=== PATIENT | female | born 1995 ===

== ENCOUNTER 2020-06-28 11:40 | Outpatient (REF) | payer OTHER, SELFPAY ==
[2020-06-29 11:58] LABS: BV Int Neg Control Negative (Negative); BV Int Pos Control Positive (Positive)
== END 2020-06-28 11:41 | disposition home or self-care (01) ==
LOC: HO.LNP 11:40
PROVIDERS: Visit Provider Nurse Practitioner Family
DX: N89.8 Other specified noninflammatory disorders of vagina (principal)
CPT/HCPCS: 87480; 87510; 87660

== ENCOUNTER 2020-07-03 11:03 | Outpatient (REF) | payer OTHER, SELFPAY ==
--- NOTE | 2020-07-03 | US_ITS ---
EXAMINATION: ULTRASOUND PELVIC, COMPLETE CLINICAL INFORMATION: Abnormal prior ultrasound COMPARISON: Pelvic ultrasound 04/19/2020 TECHNIQUE: Transabdominal and transvaginal imaging was performed. Transvaginal imaging was performed for further evaluation of the endometrium and adnexa. FINDINGS: The uterus is of normal size and echogenicity measuring 5.6 x 2.5 x 3.5 cm. Previously seen complex cystic lesion in the anterior aspect of the lower uterine segment adjacent to the endometrium shows involution with a residual heterogeneous area that measures 0.6 x 0.3 x 0.5 cm. No internal cystic change. A regular homogeneous endometrium is identified measuring 0.4 cm. Both ovaries are of normal size and echogenicity. The right ovary measures 4.2 x 1.7 x 1.9 cm for a volume of 6.8 mL. The left ovary measures 2.7 x 1.5 x 2.7 cm for a volume of 5.7 mL. There is no pelvic free fluid. IMPRESSION: Interval involution of previously seen complex cystic area in the anterior lower uterine segment, now with residual heterogeneous area that measures 0.6 x 0.3 x 0.5 cm. Ovaries are sonographically normal.
== END 2020-07-03 11:04 | disposition home or self-care (01) ==
LOC: HO.US 11:03
PROVIDERS: PCP Internal Medicine; Visit Provider Obstetrics & Gynecology
DX: R93.89 Abnormal findings on diagnostic imaging of other specified body structures (principal)
CPT/HCPCS: 76830; 76856

== ENCOUNTER 2020-11-28 12:05 | Outpatient (REF) | payer OTHER, SELFPAY ==
[2020-11-29 05:05] LABS: ~Hepatitis B Surface Antibody REACTIVE (Nonreactive)
[2020-12-01 11:16] LABS: TS Negative Control Passed; TS Panel A 0; TS Panel B 1; TS Positive Control Passed; TSpotTB Negative (SeeBelow)
== END 2020-11-28 12:06 | disposition home or self-care (01) ==
LOC: HO.HMGCLDS 12:05
PROVIDERS: PCP Internal Medicine; Visit Provider Internal Medicine
DX: Z01.84 Encounter for antibody response examination (principal); Z11.1 Encounter for screening for respiratory tuberculosis
CPT/HCPCS: 36415; 86481; 86706; 86735; 86762; 86765; 86787

== ENCOUNTER 2021-05-15 10:18 | Outpatient (REF) | payer OTHER, SELFPAY ==
[2021-05-16 05:52] LABS: CT PCR NOT DETECTED (Not Detect.); NG PCR NOT DETECTED (Not Detect.)
[2021-05-16 08:57] LABS: BV Int Neg Control Negative (Negative); BV Int Pos Control Positive (Positive)
== END 2021-05-15 10:19 | disposition home or self-care (01) ==
LOC: HO.LAB 10:18
PROVIDERS: Visit Provider Advanced Practice Midwife
DX: Z01.419 Encounter for gynecological examination (general) (routine) without abnormal findings (principal); N92.6 Irregular menstruation, unspecified; Z87.42 Personal history of other diseases of the female genital tract; Z79.899 Other long term (current) drug therapy
CPT/HCPCS: 87480; 87491; 87510; 87591; 87660; 88142

== ENCOUNTER 2022-05-19 11:02 | Outpatient (REF) | payer OTHER, SELFPAY ==
[2022-05-19 13:06] LABS: Syphilis Screen Nonreactive (Nonreactive)
[2022-05-19 17:01] LABS: CT PCR NOT DETECTED (Not Detect.); NG PCR NOT DETECTED (Not Detect.)
[2022-05-20 04:40] LABS: HBsAGNum1 0.24 S/CO (0.00-0.99); HIV AB/AG Nonreactive (Nonreactive); HIV Num 1 0.09 S/CO (0.00-0.99); Hepatitis B Surface Antigen Negative (Negative); ~HepC Num1 0.08 S/CO (0.00-0.79); ~Hepatitis C Antibody Nonreactive (Nonreactive)
[2022-05-20 12:54] LABS: BV Int Neg Control Negative (Negative); BV Int Pos Control Positive (Positive)
[2022-06-08 00:37] LABS: HPV mRNA E6/E7 rflx Not Detected (Not Detected)
== END 2022-05-19 11:03 | disposition home or self-care (01) ==
LOC: HO.LAB 11:02
PROVIDERS: Visit Provider Advanced Practice Midwife
DX: Z01.419 Encounter for gynecological examination (general) (routine) without abnormal findings (principal); Z11.3 Encounter for screening for infections with a predominantly sexual mode of transmission; Z11.4 Encounter for screening for human immunodeficiency virus [HIV]; Z87.42 Personal history of other diseases of the female genital tract
CPT/HCPCS: 36415; 86780; 86803; 87340; 87389; 87480; 87491; 87510; 87591; 87624; 87660; 88142

== ENCOUNTER 2023-05-22 11:06 | Outpatient (REF) | payer OTHER, SELFPAY ==
[2023-05-22 14:03] LABS: CT PCR NOT DETECTED (Not Detect.); NG PCR NOT DETECTED (Not Detect.)
[2023-05-23 14:14] LABS: BV Int Neg Control Negative (Negative); BV Int Pos Control Positive (Positive)
== END 2023-05-22 11:07 | disposition home or self-care (01) ==
LOC: HO.LNP 11:06
PROVIDERS: Visit Provider Advanced Practice Midwife
DX: Z01.419 Encounter for gynecological examination (general) (routine) without abnormal findings (principal); Z20.2 Contact with and (suspected) exposure to infections with a predominantly sexual mode of transmission
CPT/HCPCS: 0353U; 87480; 87510; 87660

== ENCOUNTER 2023-05-22 11:06 | Outpatient (AMB) | payer OTHER, SELFPAY ==
--- NOTE | 2023-05-22 11:17 | A.OFFVIS_ITS ---
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 It Administrative Assistant Required: No Information Interpreted: non-clinical & clinical Supervisor Crack Off: Supervisor Crack Off Present (Daniel) Allergies No Known Allergies Allergy (Verified 05/22/23 11:21) Medication List - Last Reconciled 05/22/23 by Camille Landon CNM bupropion HCl (Wellbutrin XL) 300 mg PO QAM cholecalciferol (vitamin D3) 1,250 mcg PO QWEEK dextroamphetamine-amphetamine 10 mg ER 1 cap PO QAM escitalopram oxalate (Lexapro) 20 mg PO DAILY fluticasone propionate 50 mcg/actuation 1 spray intranasal DAILY norelgestromin-ethin.estradiol 150-35 mcg/24 hr (Xulane) 1 patch transdermal Q7D Is last menstrual period known: Yes Last menstrual period: 05/09/23 Post menopausal: No HPI 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 She is using the patch she sometimes finds that it is itchy and she finds herself scratching it but she does not have a rash. She is otherwise happy with the patch and thinks she will stick with it . 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 She injured her back this year and is looking at an outpatient clinic job that will be less strenuous on her back because she does not want to return to full duty and injure her back again she was lifting with another work colleague and she lifted in the other person did not. She says it has been very busy on their unit in all of their patients are total care. She is off for vacation this week having worked last night and she is going to be driving to [place] tomorrow to visit her family in [place]. [facility] Medical History ADD (attention deficit disorder) Family History Mother CVD (cardiovascular disease) High cholesterol Father HTN (hypertension) Social History Household Members: Other Household Members Other:: roomate Housing: Apartment Alcohol intake: current Patient Tobacco Use Status: Never used Tobacco Sexual orientation: Straight/Heterosexual Gender identity: Female Female Reproductive History Menstrual Age of Menarche: 12 Duration of menses: 6-7 days Date of last menstrual period: 05/09/23 control method: patch Total pregnancies: 0 Date of last pap smear: 05/21/22 (negative) History of abnormal pap smear: Yes (LARRY 1) Physical Exam Vital Signs: BMI result Body Mass Index 19.2 Const General: healthy appearing, comfortable, no acute distress, well developed and alert Nutritional Appearance: average body habitus Orientation/consciousness: patient oriented x3 Limitations: no limitations HEENT Head: Yes normocephalic Neck Neck: Yes normal visual inspection Chest Chest palpation & inspection: normal inspection of the chest Breast/axilla inspection: normal inspection of the breasts and normal inspection of the axillae Breast/axilla palpation: normal palpation of the breasts and normal palpation of the axillae Resp Effort & Inspection: normal respiratory effort GI Inspection: Yes normal to inspection, No Abdominal wall edema and No distended Palpation (GI): Soft to palpation and nontender Other: nullip, pink, clear mucous, uterus small, sl retroverted. General: Yes bladder normal to palpation External Female Exam: normal external appearance and normal appearance of the urethra Speculum Exam - Vagina: normal appearance of the vagina, normal palpation and normal vaginal discharge Speculum Exam - Cervix: normal appearance of the cervix, normal palpation and nontender Bimanual exam- vagina & uterus: normal bimanual exam, normal palpation, uterine size normal, bladder normal to palpation, consistency normal, normal palpation, uterine mobility normal, uterine shape normal, No Cervical tenderness present, non-tender and no cervical motion tenderness Bimanual Exam- Adnexa, other: normal adnexae, no masses, normal and No adnexal tenderness Neuro General: patient oriented x3 Results Reviewed Results Reviewed: Name:April Babb Age/Sex: 25/F Attending: Camille Landon CNM : 1995 Submitted by: Camille Landon CNM Copies to: MR #: [id number] ? Status: DEP REF Collected: 05/15/21 Location: [facility] Received: 05/16/21 Interpretation Satisfactory for evaluation. Negative for intraepithelial lesion or malignancy. Clinical Information LMP: 05/15/2021 Previous PAP test: Unknown date, abnormal Other history: LARRY 1 Material Received ThinPrep cervical Electronically Signed By: Britni Harris ? 05/24/21 1431 Name:?April Truong Age/Sex: 26/F Attending: Camille Landon CNM : 1995 Submitted by: Camille Landon CNM Copies to: MR #: [id number] ? Status: DEP REF Collected: 05/19/22 Location: [facility] Received: 05/20/22 Interpretation Satisfactory for evaluation. No endocervical cells seen. Negative for intraepithelial lesion or malignancy. Clinical Information LMP: 03/2022 Previous PAP test: 05/16/21, WNL Material Received ThinPrep-Cervical Assessment & Plan Assessment & Plan (1) Counseling for initiation of control method: Comment: switching from ocps to patch; 05/22/2023 will continue on patch Code(s): Z30.09 - Encounter for other general counseling and advice on contraception (2) Screen for sexually transmitted diseases: Code(s): Z11.3 - Encounter for screening for infections with a predominantly sexual mode of transmission (3) Hx of abnormal cervical Pap smear: Comment: hx larry 1, pap 05/15/21= neg. 05/19/2022 Pap is negative, hpv not done, pending now. Code(s): Z87.42 - Personal history of other diseases of the female genital tract Plan Pap deferred as the previous 2 Paps were normal though it is noted that HPV code testing was not done as requested. STI testing was offered and accepted for the vaginal tests but declined for blood work is not necessary. Reviewed the patch versus other options she thinks she will stick with the patch. The other similar option that would be within her control to stop when she wants to conceive would be the NuvaRing and I did describe it to her but she is not interested at this time. I also discussed with her that when she does feel ready and wants to conceive all she needs to do is stop the patch at the end of the 3 week cycle of use and proceed on from there and be open to conception. It sometimes might be good to wait for of entire cycle and have a heavy normal menses but it is not absolutely necessary. Also discussed back care and remembering everything she was taught in physical therapy to help prevent re-injury of her back. 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 Orders: Orders Bacterial Vaginosis Panel Today Z01.419 - Encounter for gynecological examination (general) (routine) without abnormal findings CT NG by PCR Today Z01.419 - Encounter for gynecological examination (general) (routine) without abnormal findings Medications: Refilled norelgestromin-ethin.estradiol 150-35 mcg/24 hr (Xulane) apply once weekly for 3 weeks of a 4-week cycle 1 patch transdermal Q7D 9 ea 4RF Coding Level of Care Code Est Pt Prev Care 18-39y(99664) Diagnoses Counseling for initiation of control method Z30.09 Screen for sexually transmitted diseases Z11.3 Hx of abnormal cervical Pap smear Z87.42
[2023-05-22 11:18] VITALS: BP 108/64; BMI 19.2
== END 2023-05-22 11:56 | disposition home or self-care (01) ==
PROVIDERS: Visit Provider Advanced Practice Midwife
DX: Z01.419 Encounter for gynecological examination (general) (routine) without abnormal findings (principal); Z30.09 Encounter for other general counseling and advice on contraception; Z11.3 Encounter for screening for infections with a predominantly sexual mode of transmission; Z87.42 Personal history of other diseases of the female genital tract
CPT/HCPCS: 99395

== ENCOUNTER 2023-11-16 09:31 | Outpatient (AMB) | payer OTHER, SELFPAY ==
[2023-11-16 09:39] VITALS: BP 110/64; BMI 19.2
--- NOTE | 2023-11-16 09:39 | MHC.OFFVIS ---
Intake Vital Signs 11/16/23 09:39 Height 5 ft 2 in Weight 105 lb BMI 19.2 BP 110/64 Intake Visit Reasons: vag irritation/discharge Intake Note: vaginal itch and yellow brownish discharge also having odor Site Acquisition Manager Required: No Information Interpreted: non-clinical & clinical Assistant To The Vice President: Assistant To The Vice President Present (Daniel) Allergies No Known Allergies Allergy (Verified 11/16/23 09:41) Medication List - Last Reconciled 11/16/23 by Camille Landon CNM bupropion HCl (Wellbutrin XL) 300 mg PO QAM cholecalciferol (vitamin D3) 1,250 mcg PO QWEEK dextroamphetamine-amphetamine 10 mg ER 1 cap PO QAM escitalopram oxalate (Lexapro) 20 mg PO DAILY fluticasone propionate 50 mcg/actuation 1 spray intranasal DAILY meloxicam 15 mg PO DAILY norelgestromin-ethin.estradiol 150-35 mcg/24 hr (Xulane) 1 patch transdermal Q7D pregabalin 75 mg PO BID Is last menstrual period known: Yes Last menstrual period: 10/23/23 Post menopausal: No HPI vag irritation/discharge HPI Details Uses the patch for control and happy with that she is always on time with it. She has been noticing a little bit of a brownish discharge sometimes sometimes yellow sometimes even a green tint and it had a little bit of an odor so she wants to get checked she has having no itching. Not having any pain or anything like that. [facility] Medical History (Updated 11/16/23 @ 10:18 by Camille Landon CNM) Back pain Depression ADD (attention deficit disorder) Family History Mother CVD (cardiovascular disease) High cholesterol Father HTN (hypertension) Social History Household Members: Other Household Members Other:: roomate Housing: Apartment Alcohol intake: current Patient Tobacco Use Status: Never used Tobacco Sexual orientation: Straight/Heterosexual Gender identity: Female Female Reproductive History Menstrual Age of Menarche: 12 Duration of menses: 6-7 days Date of last menstrual period: 10/23/23 control method: patch Total pregnancies: 0 Date of last pap smear: 05/20/22 (negative) Physical Exam Vital Signs: Last Vital Signs BP 110/64 11/16/23 09:39 BMI result Body Mass Index 19.2 Other: Speculum exam within normal limits discharge today is whitish with some bubbly missed 2 it but appears within normal limits some brown discharge within os consistent with old blood. External Female Exam: normal external appearance and normal appearance of the urethra Speculum Exam - Vagina: normal appearance of the vagina and normal vaginal discharge Speculum Exam - Cervix: normal appearance of the cervix and Cervical os closed Assessment & Plan Assessment & Plan (1) Screen for sexually transmitted diseases: Code(s): Z11.3 - Encounter for screening for infections with a predominantly sexual mode of transmission (2) Problematic vaginal discharge: Comment: Await testing results Code(s): N89.8 - Other specified noninflammatory disorders of vagina Plan Reviewed the testing that we are doing today testing for STIs and bacterial vaginosis and yeast. Will await the test results exam rather benign today. Reviewed whether not she been late with the patch or anything that could explain intermenstrual breakthrough bleeding but she is always on time with it in it stuck well on. Discussed the possibility that maybe this is just a little bit of breakthrough bleeding that mixed with her discharge that caused the color change in odor but we will see and await results she is on the portal so she can see the results quickly as well. If there is anything we will offer treatment. She says she has enough patches & is not running out. Coding Level of Care Code Est Pt Level 3 (37213) Diagnoses Screen for sexually transmitted diseases Z11.3 Problematic vaginal discharge N89.8
== END 2023-11-16 10:46 | disposition home or self-care (01) ==
LOC: HO.HWSM 09:32
PROVIDERS: PCP Student in an Organized Health Care Education/Training Program; Visit Provider Advanced Practice Midwife
DX: Z11.3 Encounter for screening for infections with a predominantly sexual mode of transmission (principal); N89.8 Other specified noninflammatory disorders of vagina
CPT/HCPCS: 99213

== ENCOUNTER 2023-11-16 09:31 | Outpatient (REF) | payer OTHER, SELFPAY ==
[2023-11-17 11:39] LABS: CT PCR NOT DETECTED (Not Detect.); NG PCR NOT DETECTED (Not Detect.)
[2023-11-17 12:47] LABS: BV Int Neg Control Negative (Negative); BV Int Pos Control Positive (Positive)
== END 2023-11-16 09:32 | disposition home or self-care (01) ==
LOC: HO.LNP 09:31
PROVIDERS: PCP Student in an Organized Health Care Education/Training Program; Visit Provider Advanced Practice Midwife
DX: Z20.2 Contact with and (suspected) exposure to infections with a predominantly sexual mode of transmission (principal); N89.8 Other specified noninflammatory disorders of vagina
CPT/HCPCS: 0353U; 87480; 87510; 87660

== ENCOUNTER 2024-06-28 09:23 | Outpatient (AMB) | payer OTHER, SELFPAY ==
[2024-06-28 09:28] VITALS: BP 110/60; BMI 19.2
--- NOTE | 2024-06-28 09:28 | A.OFFVIS_ITS ---
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 Information Interpreted: clinical only Rodding Machine Tender: Rodding Machine Tender Present Allergies No Known Allergies Allergy (Verified 06/28/24 09:28) Medication List - Last Reconciled 06/28/24 by Camille Landon CNM bupropion HCl XL (Wellbutrin XL) 300 mg PO QAM cholecalciferol (vitamin D3) 1,250 mcg PO QWEEK dextroamphetamine-amphetamine 10 mg ER 1 cap PO QAM escitalopram oxalate (Lexapro) 20 mg PO DAILY fluticasone propionate 50 mcg/actuation 1 spray intranasal DAILY meloxicam 15 mg PO DAILY norelgestromin-ethin.estradiol 150-35 mcg/24 hr (Xulane) 1 patch transdermal Q7D pregabalin 75 mg PO BID Is last menstrual period known: Yes Last menstrual period: 06/23/24 HPI HPI 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 She says things are good and she does have a therapist and a psychiatrist prescribes her antidepressant so she thinks she is on the right dose discussed that there are effects on libido from both OCPs and their analogs last patches and antidepressants and also depression itself. Explored with her options for dealing with this from a contraceptive point of view but she feels she is on the best method for her because of her history of PCOS in getting recurrent cysts so if she were to switch to a nonhormonal method that problem would revisit. Explored things that may make her feel better including exercise things that gave her luis alberto. She will keep working on this but thinks she is on the best method of control I am sending a prescription to refill for her but insurance may not pay for the extra box. We will do her Pap smear next year with HPV code testing as she is not due for it now and the last 2 were negative testing done for infections along with the exam. For now she will continue patch and see next year. [facility] Medical History Back pain Depression ADD (attention deficit disorder) Family History Mother CVD (cardiovascular disease) High cholesterol Father HTN (hypertension) Social History Household Members: Other Household Members Other:: roomate Housing: Apartment Alcohol intake: current Patient Tobacco Use Status: Never used Tobacco Sexual orientation: Straight/Heterosexual Gender identity: Female Female Reproductive History Menstrual Age of Menarche: 12 Duration of menses: 6-7 days Date of last menstrual period: 06/23/24 control method: patch Total pregnancies: 0 Date of last pap smear: 05/20/22 (negative,2020 WNL) History of abnormal pap smear: Yes (abn.pap,2016,per pt,) Physical Exam Vital Signs: Last Vital Signs BP 110/60 06/28/24 09:28 BMI result Body Mass Index 19.2 Const General: healthy appearing, comfortable, no acute distress, well developed and alert Nutritional Appearance: average body habitus Orientation/consciousness: patient oriented x3 Limitations: no limitations HEENT Head: Yes normocephalic Neck Neck: Yes normal visual inspection Chest Chest palpation & inspection: normal inspection of the chest Breast/axilla inspection: normal inspection of the breasts and normal inspection of the axillae Breast/axilla palpation: normal palpation of the breasts and normal palpation of the axillae Resp Effort & Inspection: normal respiratory effort GI Inspection: Yes normal to inspection, No Abdominal wall edema and No distended Palpation (GI): Soft to palpation and nontender Other: External exam within limits vagina moist cervix nulliparous pink moist end of menses brown mucousy discharge cervix long thick closed mobile nontender uterus midposition mobile nontender adnexa nontender good tone with Kegel. General: Yes bladder normal to palpation External Female Exam: normal external appearance and normal appearance of the ur ethra Speculum Exam - Vagina: normal appearance of the vagina, normal palpation and normal vaginal discharge Speculum Exam - Cervix: normal appearance of the cervix, normal palpation and nontender Bimanual exam- vagina & uterus: normal bimanual exam, normal palpation, uterine size normal, bladder normal to palpation, consistency normal, normal palpation, uterine mobility normal, uterine shape normal, No Cervical tenderness present, non-tender and no cervical motion tenderness Bimanual Exam- Adnexa, other: normal adnexae, no masses, normal and No adnexal tenderness Neuro General: patient oriented x3 Results Reviewed Results Reviewed: Name: April Truong Age/Sex: 26/F Attending: Camille Landon CNM : 1995 Submitted by: Camille Landon CNM Copies to: MR #: [id number] Status: DEP REF Collected: 05/19/22 Location: .LAB Received: 05/20/22 Interpretation Satisfactory for evaluation. No endocervical cells seen. Negative for intraepithelial lesion or malignancy. Clinical Information LMP: 03/2022 Previous PAP test: 05/16/21, WNL Material Received ThinPrep-Cervical Electronically Signed By: BLESSING Cordero (ASCP) 06/04/22 1315 The Pap Test is a screening procedure with the inherent possibility of both false negative and false positive results. Results should be interpreted in the context of historic and current clinical findings. Reliability of the Pap Test is enhanced by performing the test on a regular repetitive basis. Patient: April Truong Age/Sex: 26/F MR#: [id number] Page 1 of 1 Name: April Truong Age/Sex: 25/F Attending: Camille Landon CNM : 1995 Submitted by: Camille Landon CNM Copies to: MR #: [id number] Status: DEP REF Collected: 05/15/21 Location: .LAB Received: 05/16/21 Interpretation Satisfactory for evaluation. Negative for intraepithelial lesion or malignancy. Clinical Information LMP: 05/15/2021 Previous PAP test: Unknown date, abnormal Other history: LARRY 1 Material Received ThinPrep cervical Electronically Signed By: Britni Harris 05/24/21 1432 The Pap Test is a screening procedure with the inherent possibility of both false negative and false positive results. Results should be interpreted in the context of historic and current clinical findings. Reliability of the Pap Test is enhanced by performing the test on a regular repetitive basis. Patient: April Truong Age/Sex: 25/F MR#: [id number] Page 1 of 1 Assessment & Plan Assessment & Plan (1) Screen for sexually transmitted diseases: Code(s): Z11.3 - Encounter for screening for infections with a predominantly sexual mode of transmission Category: Medical (2) Hx of abnormal cervical Pap smear: Comment: hx larry 1, pap 05/15/21= neg. 05/19/2022 Pap is negative, hpv not done, pending now. 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 She says things are good and she does have a therapist and a psychiatrist prescribes her antidepressant so she thinks she is on the right dose discussed that there are effects on libido from both OCPs and their analogs last patches and antidepressants and also depression itself. Explored with her options for dealing with this from a contraceptive point of view but she feels she is on the best method for her because of her history of PCOS in getting recurrent cysts so if she were to switch to a nonhormonal method that problem would revisit. Explored things that may make her feel better including exercise things that gave her luis alberto. She will keep working on this but thinks she is on the best method of control I am sending a prescription to refill for her but insurance may not pay for the extra box. We will do her Pap smear next year with HPV code testing as she is not due for it now and the last 2 were negative testing done for infections along with the exam. For now she will continue patch and see next year. - -----Discussed in this visit the following: healthy balanced diet, regular and consistent exercise, getting recommended health screens, doing the best she can for her particular health concerns, kegel exercises, pap smear screening and followup recommendations, mammography screening and SBE, normal changes in cycles in her life stage--- . Medications: Refilled norelgestromin-ethin.estradiol 150-35 mcg/24 hr (Xulane) apply once weekly for 3 weeks of a 4-week cycle 1 patch transdermal Q7D 9 ea 4RF Coding Level of Care Code Est Pt Prev Care 18-39y(75063) Diagnoses Screen for sexually transmitted diseases Z11.3 Hx of abnormal cervical Pap smear Z87.42 Well woman exam with routine gynecological exam Z01.419 Counseling for initiation of control method Z30.09
== END 2024-06-28 10:19 | disposition home or self-care (01) ==
PROVIDERS: Visit Provider Advanced Practice Midwife
DX: Z01.419 Encounter for gynecological examination (general) (routine) without abnormal findings (principal); Z87.42 Personal history of other diseases of the female genital tract; Z30.09 Encounter for other general counseling and advice on contraception
CPT/HCPCS: 99395

== ENCOUNTER 2024-06-28 09:23 | Outpatient (REF) | payer OTHER, SELFPAY ==
[2024-06-29 12:01] LABS: CT PCR NOT DETECTED (Not Detect.); NG PCR NOT DETECTED (Not Detect.)
[2024-06-29 14:52] LABS: Bacterial Vaginosis PCR NEGATIVE (Negative); Candida Group PCR NOT DETECTED (Not Detect); Candida glab krusei PCR NOT DETECTED (Not Detect); Trichomonas vaginalis PCR NOT DETECTED (Not Detect)
== END 2024-06-28 09:24 | disposition home or self-care (01) ==
LOC: HO.LAB 09:23
PROVIDERS: Visit Provider Advanced Practice Midwife
DX: N89.8 Other specified noninflammatory disorders of vagina (principal); Z20.2 Contact with and (suspected) exposure to infections with a predominantly sexual mode of transmission
CPT/HCPCS: 0352U; 87491; 87591

== ENCOUNTER 2025-06-30 09:26 | Outpatient (REF) | payer OTHER, SELFPAY ==
[2025-06-30 14:48] LABS: Bacterial Vaginosis PCR NEGATIVE (Negative); Candida Group PCR NOT DETECTED (Not Detect); Candida glab krusei PCR NOT DETECTED (Not Detect); Trichomonas vaginalis PCR NOT DETECTED (Not Detect)
[2025-06-30 15:19] LABS: CT PCR NOT DETECTED (Not Detect.); NG PCR NOT DETECTED (Not Detect.)
== END 2025-06-30 09:27 | disposition home or self-care (01) ==
LOC: HO.LNP 09:26
PROVIDERS: Visit Provider Advanced Practice Midwife
DX: Z01.419 Encounter for gynecological examination (general) (routine) without abnormal findings (principal); Z30.09 Encounter for other general counseling and advice on contraception; Z87.42 Personal history of other diseases of the female genital tract; Z20.2 Contact with and (suspected) exposure to infections with a predominantly sexual mode of transmission
CPT/HCPCS: 81515; 87491; 87591; 87626; 88175

== ENCOUNTER 2025-06-30 09:26 | Outpatient (AMB) | payer OTHER, SELFPAY ==
--- NOTE | 2025-06-30 09:35 | A.OFFVIS_ITS ---
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: Solar Installation Helper Present (Sparkle Orlando RMA) Allergies polymyxin b sulfate Allergy (Intermediate, Uncoded 06/30/25 09:39) Rash Medication List - Last Reconciled 06/30/25 by Camille Landon CNM bupropion HCl XL (Wellbutrin XL) 300 mg PO QAM cholecalciferol (vitamin D3) 1,250 mcg PO QWEEK dextroamphetamine-amphetamine 10 mg ER 1 cap PO QAM escitalopram oxalate (Lexapro) 20 mg PO DAILY fluticasone propionate 50 mcg/actuation 1 spray intranasal DAILY meloxicam 15 mg PO DAILY norelgestromin-ethin.estradiol 150-35 mcg/24 hr (Xulane) 1 patch transdermal Q7D pregabalin 75 mg PO BID Is last menstrual period known: Yes Last menstrual period: 06/05/25 HPI HPI 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 She is on the patch and has been for some time and finds it works very well for her she has a history of PCOS and her periods have become very regular with the med she has not had anymore issues with cysts. She is contemplating conception in the future but no time soon but wants to also discuss best practice for stopping the patch when she is ready to conceive and pre conception issues.. She does wax for hair removal and sometimes after it but sometimes also randomly she notices a little bit of vaginal itching but then it goes away. 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 she was there full-time until she hurt her back but her back is better since she switch to the clinic for her full-time job. [facility] Medical History Back pain Depression ADD (attention deficit disorder) Family History Mother CVD (cardiovascular disease) High cholesterol Father HTN (hypertension) Social History (Updated 06/30/25 @ 09:42 by Sparkle Orlando CMA) Household Members: Significant Other Household Members Other:: roomate Housing: Apartment Alcohol intake: current Patient Tobacco Use Status: Never used Tobacco Current occupational status: employed Current occupation: Nurse [employer] Sexual orientation: Straight/Heterosexual Gender identity: Female Female Reproductive History Menstrual Age of Menarche: 12 Duration of menses: 6-7 days Date of last menstrual period: 06/05/25 control method: pills Total pregnancies: 0 Physical Exam Vital Signs: Last Vital Signs BP 98/60 06/30/25 09:37 BMI result Body Mass Index 18.5 Const General: healthy appearing, comfortable, no acute distress, well developed and alert Nutritional Appearance: average body habitus Orientation/consciousness: patient oriented x3 Limitations: no limitations HEENT Head: Yes normocephalic Neck Neck: Yes normal visual inspection Chest Chest palpation & inspection: normal inspection of the chest Breast/axilla inspection: normal inspection of the breasts and normal inspection of the axillae Breast/axilla palpation: normal palpation of the breasts and normal palpation of the axillae Resp Effort & Inspection: normal respiratory effort GI Inspection: Yes normal to inspection, No Abdominal wall edema and No distended Palpation (GI): Soft to palpation and nontender Other: External exam within normal limits no erythema whatsoever no abnormal discharge scant clear healthy discharge mucosa moist vagina pink and clear. Cervix is nulliparous pink smooth mobile nontender with clear sticky mucus consistent with combination contraceptive use uterus midposition mobile nontender adnexa nontender nonenlarged good muscle tone with Kegel General: Yes bladder normal to palpation External Female Exam: normal external appearance and normal appearance of the urethra Speculum Exam - Vagina: normal appearance of the vagina, normal palpation and normal vaginal discharge Speculum Exam - Cervix: normal appearance of the cervix, normal palpation and nontender Bimanual exam- vagina & uterus: normal bimanual exam, normal palpation, uterine size normal, bladder normal to palpation, consistency normal, normal palpation, uterine mobility normal, uterine shape normal, No Cervical tenderness present, non-tender and no cervical motion tenderness Bimanual Exam- Adnexa, other: normal adnexae, no masses, normal and No adnexal tenderness Neuro General: patient oriented x3 Assessment & Plan Assessment & Plan (1) Well woman exam with routine gynecological exam: Code(s): Z01.419 - Encounter for gynecological examination (general) (routine) without abnormal findings Category: Medical (2) Hx of abnormal cervical Pap smear: Comment: hx randy 1, pap 05/15/21= neg. 05/19/2022 Pap is negative, hpv not done, pending now. Code(s): Z87.42 - Personal history of other diseases of the female genital tract Category: Medical (3) Screen for sexually transmitted diseases: Code(s): Z11.3 - Encounter for screening for infections with a predominantly sexual mode of transmission Category: Medical (4) History of PCOS: Code(s): Z87.42 - Personal history of other diseases of the female genital tract Category: Medical (5) Family planning counseling: Code(s): Z30.09 - Encounter for other general counseling and advice on contraception Category: Medical Plan -----Discussed in this visit the following: healthy balanced diet, regular and consistent exercise, getting recommended health screens, doing the best she can for her particular health concerns, kegel exercises, pap smear screening and followup recommendations, mammography screening and SBE, normal changes in cycles in her life stage--- . Reviewed self-care. Reviewed the common experience of experiencing subtle symptoms of vaginal itching or burning that are an indication of incipient yeast and can easily happen when not wearing cotton or loose clothing and uniform material notoriously does not breathe and can be problematic for this and sometimes the only solution is awareness wearing looser clothing and changing out when able to cotton. Discussed her history of PCOS and future childbearing and conception issues she theoretically could stopped the patch at the end of a cycle and conceived the following month however if she wanted to wait a month or so and allow for full return of heavy menses that might be beneficial however in the light of her history of PCOS there is no guarantee of when she might return to irregular cycle and she probably should not waste time now that she is over 29 years old once she decides that she wishes to conceive and that the most if she does not conceive within 6 months she would be chapin to seek out the guidance of fertility services at [facility]. Additionally taking a multivitamin with folic acid and making sure she is eating well and has a healthy diet would be to her benefit. Orders: Orders Pap Smear Today Z01.419 - Encounter for gynecological examination (general) (routine) without abnormal findings CT NG by PCR Vag/Cerv Today Z01.419 - Encounter for gynecological examination (general) (routine) without abnormal findings Bacterial Vaginosis Panel Today Z01.419 - Encounter for gynecological examination (general) (routine) without abnormal findings HPV High risk Today Z01.419 - Encounter for gynecological examination (general) (routine) without abnormal findings Medications: Refilled norelgestromin-ethin.estradiol 150-35 mcg/24 hr (Xulane) apply once weekly for 3 weeks of a 4-week cycle 1 patch transdermal Q7D 9 ea 4RF Coding Level of Care Code Est Pt Level 3 (51108) Diagnoses Well woman exam with routine gynecological exam Z01.419 Hx of abnormal cervical Pap smear Z87.42 Screen for sexually transmitted diseases Z11.3 History of PCOS Z87.42 Family planning counseling Z30.09
[2025-06-30 09:37] VITALS: BP 98/60; BMI 18.5
--- OUTSIDE RECORDS SUMMARY | 2025-06-30 10:03 | XMS_ITS | Data Portability ---
Author Organization [place] - [facility], Allergy Address [address] [facility] [address] [place] [address] Care Team Providers Care Latin Dance Instructor Name Role Phone NATHAN BARNETT Primary Care Provider Assessment Encounter Date Assessment Date Assessment LastModified by Organization Details LastModified Time 04/05/2025 04/05/2025 29-year-old female presents for reevaluation. 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 The drum is generally thickened with loss of landmark. Left otologic exam is unremarkable. Audiometric testing today shows persistent conductive hearing loss on the right side and normal hearing on the left. Tympanogram is type B on the right and type a on the left. For occasional wetness I have recommended a mixture of one-to-one white vinegar and rubbing alcohol. This can help dry out the ear and prevent infection. Otherwise, no further intervention was recommended. She should continue hearing aid use. All questions were answered. [email or web address] Not available 04/05/2025 14:55:31 Plan of Treatment Reminders Order Date Submit Date Provider Last Modified By Organization Details Last Modified Time Details Appointments None record ed. Lab None record ed. Referral None record ed. Procedures None record ed. Surgeries None record ed. Imaging None record ed. Medication Orders None record ed. Patient TargetsNo targets recorded. Patient InstructionsNo instructions recorded. Reason for Referral None Reported. Results Created Date Observation Date Name Description Value Unit Range Abnormal Flag Note LastModifiedBy Organization Detail LastModifiedTime 04/05/20 25 audio gram No observ ation record ed. BARCODE Not Available 2024 17:25:23 Result Notes None recorded. Problems Name Problem SNOMED Code Status Onset Date Resolution Date Notes Provider Name and Address Organization Details Recorded Time Chronic mucoid otitis media 00334082 Active 2019 Chronic mucoid otitis media, unspecifi ed ear; Note: Date Diagnosed : 01/06/2020 3:02 PM (H65.30) Not Available [facility] 4 03:15:49 Chronic purulent otitis media 11111294 Active 2019 Chronic suppurati ve otitis media; Note: Date Diagnosed : 01/06/2020 3:01 PM (382.3) Not Available [facility] 4 03:15:49 Allergic rhinitis 23254710 Active 2019 Allergic rhinitis, unspecifi ed; Note: Date Diagnosed : 01/06/2020 3:06 PM (J30.9) Not Available [facility] 4 03:15:48 Conductiv e hearing loss 21287951 Active 2019 Conductiv e hearing loss, unilatera l, right ear, with unrestric edna hearing on the contralat eral side; Note: Date Diagnosed : 0 5:06 PM (H90.11) Not Available [facility] 4 03:15:50 Disorder of right tympanic membrane 32286491835 03817 Active 2019 Other specified disorders of tympanic membrane, right ear; Note: Date Diagnosed : 0 5:06 PM (H73.891) Not Available [facility] 4 03:15:49 Pain of right temporoma ndibular joint 90658189023 565736 Active 2020 Arthralgi a of right temporoma ndibular joint; Note: Date Diagnosed : 01/30/2021 4:57 PM (M26.621) Not [facility] 4 03:15:49 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 Procedures Surgical History Date Name Laterality Status Provider Name and Address Organization Details Recorded Time 04/05/2025 Comp Audio with Tymps - 20216 & 07240 completed BINH HARVEY, [address], [address], [place] - [facility] 04/05/2025 14:36:11 Imaging Results None recorded. Procedure Notes None recorded. Medical Equipment None Reported. Allergies Allergen ID Allergen Name Allergen Category Reaction Reaction Severity Criticality Documentation Date Start Date Code Code System Note Provider Name and Address Organization Details Recorded Time 037101 adhesive environme nt,medica tion rash moderate Not available 04/05/2025 Lucinda english [place] - [facility] 5 14:44:56 493190 cobalt environme nt Not available Not available Not available 04/05/2025 21871 00 RxNorm Lucinda english [place] - [facility] 5 14:44:56 440311 polymyxin B medicatio n rash Not available Not available 04/05/2025 8536 RxNorm Lucinda english [place] - [facility] 5 14:44:56 Medications Name Sig Start Date Stop Date Status Note LastModified by Organization Details LastModified Time cyclobenz aprine 10 mg tablet 04/05 completed Medicati on ID: [id number] B rand Name: odalys guevara Send Method: E-Prescr ibed Sub s Allowed: subs OK Medic ationGen ericName : cycloben zaprine Not Available Not Available Not Available ketoconaz ole 2 % shampoo PLEASE SEE ATTACHED FOR DETAILED DIRECTIO NS active Not Available Not Available No t Available alprazola m 1 mg tablet TAKE 1 TABLET 1 HOUR BEFORE YOUR FLIGHT NEEDED FOR ANXIETY. active Not Available Not Available No t Available meloxicam 15 mg tablet TAKE 1 TABLET BY MOUTH EVERY DAY active Not Available Not Available No t Available hydroquin one 4 % topical cream DIRECTED APPLY PEA SIZED AMOUNT TO AFFECTED AREA NIGHTLY DO NOT USE IF OR BREAST FEEDING active Not Available Not Available No t Available penicilli n V potassium 500 mg tablet TAKE 1 TABLET BY MOUTH TWICE A DAY FOR 10 DAYS 04/05 completed Not Available Not Available Not Available melatonin 3 mg tablet 3 mg as needed by oral route. active Not Available Not Available No t Available Ciloxan 0.3 % eye drops 2019 active Medicati on ID: [id number] P rescribe d By Name: Js Castillo nd Name: Ciloxan Send Method: E-Prescr ibed Sub s Allowed: subs OK Speci al Instruct ion: Instill 4 drops twice a day into affected ear for 10 days Med icationG enericNa me: Ciloxan Not Available Not Available Not Available cyprohept adine 4 mg tablet TAKE 1 TABLET BY MOUTH EVERY 8 HOURS NEEDED active Not Available Not Available No t Available triamcino lone acetonide 0.025 % topical cream 2019 active Medicati on ID: [id number] B rand Name: triamcin olone acetonid e Send Method: E-Prescr ibed Sub s Allowed: subs OK Medic ationGen ericName : triamcin olone acetonid e Not Available Not Available Not Available desonide 0.05 % topical ointment PLEASE SEE ATTACHED FOR DETAILED DIRECTIO NS active Not Available Not Available No t Available tacrolimu s 0.1 % topical ointment APPLY 0.5 INCH RIBBON TO RASH ON FACE EARS SCALP 2X A DAY UNTIL RESOLVED REPEAT NEEDED FOR FLARES active Not Available Not Available No t Available dextroamp hetamine- amphetami ne ER 10 mg 24hr capsule,e xtend release TAKE 1 CAPSULE (10 MG) BY MOUTH DAILY IN THE MORNING NEEDED active Not Available Not Available No t Available azelastin e 137 mcg (0.1 %) nasal spray Inhale 2 spray twice a day as directed 2019 active Medicati on ID: [id number] P rescribe d By Name: OSMANI Peguero nd Name: azelasti ne Send Method: E-Prescr ibed Sub s Allowed: subs OK Medic ationGen ericName : azelasti ne Not Available Not Available Not Available fluocinon pa 0.05 % topical solution APPLY TO AFFECTED AREA TWICE A DAY active Not Available Not Available No t Available fluticaso ne propionat e 50 mcg/actua tion nasal spray,genia pension 2019 active Medicati on ID: [id number] D uration Value: 30 Brand Name: fluticas one propiona te Send Method: E-Prescr ibed Sub s Allowed: subs OK Medic ationGen ericName : fluticas one propiona te Not Available Not Available Not Available ipratropi um bromide 21 mcg (0.03 %) nasal spray USE 2 SPRAYS IN EACH NOSTRIL 3 TIMES A DAY FOR 7 DAYS active Not Available Not Available No t Available amoxicill in 875 mg-potass ium clavulana te 125 mg tablet TAKE 1 TABLET BY MOUTH EVERY 12 HOURS FOR 7 DAYS 04/05 completed Not Available Not Available Not Available norelgest romin 150 mcg-e.est radiol 35 mcg/24 hr weekly transderm patch APPLY 1 PATCH TRANSDER RONALDO EVERY 7 DAYS APPLY ONCE WEEKLY FOR 3 WEEKS OF A 4-WEEK CYCLE active Not Available Not Available No t Available Lexapro 20 mg tablet 20 mg every day by oral route. active Not Available Not Available No t Available cyclobenz aprine 5 mg tablet TAKE ONE TABLET BY MOUTH 3 TIMES A DAY NEEDED FOR MUSCLE SPASM. active Not Available Not Available No t Available bupropion HCl XL 300 mg 24 hr tablet, extended release TAKE 1 TABLET BY MOUTH EVERY MORNING active Not Available Not Available No t Available pregabali n 75 mg capsule TAKE 1 CAPSULE BY MOUTH TWICE A DAY active Not Available Not Available No t Available fluocinon pa 2019 active Medicati on ID: [id number] B rand Name: fluocino nide Sen d Method: E-Prescr ibed Sub s Allowed: subs OK Medic ationGen ericName : fluocino nide Not Available Not Available Not Available Miralax active Not Available Not Avail able Not Available cholecalc iferol (vitamin D3) 1,250 mcg (50,000 unit) capsule 2019 active Medicati on ID: [id number] D uration Value: 30 Brand Name: cholecal ciferol (vitamin D3) Send Method: E-Prescr ibed Sub s Allowed: subs OK Medic Brooke ericName : cholecal ciferol (vitamin D3) Not Available Not Available Not Available Allergy Relief-D (cetirizi ne) 5 mg-120 mg tablet,ex tended release TAKE 1 TABLET BY MOUTH TWICE A DAY FOR 10 DAYS active Not Available Not Available No t Available Vitals Date Recorded Body weight Body mass index (BMI) Body height Provider Name and Address Organization Details Last Updated DateTime 04/05/2025 99418.79 g 19.4 kg/m2 157.48 cm Lucinda Kilpatrick [place] - [facility] 04/05/2025 14:44:06 Social History Question Answer Notes LastModified by Organizat ion Details LastModified Time Tobacco Smoking Status Never Smoker Lucinda english [place] [facility] 04/05/2025 14:44:27 How Many Years Have You Consumed Alcohol? 9 Information not available 04/05/2025 What Type Of Free Lance Artist Do You Use? None [email or web address] Information not available 04/05/2025 How Many Alcoholic Drinks Do You Consume Per Day On Average? 2 [email or web address] Information not available 04/05/2025 Do You Have Any Pets? Yes Information not available 04/05/2025 Are You Passively Exposed To Smoke? No [email or web address] Information not available 04/05/2025 Are There Any Smokers In Your House? No Information not available 04/05/2025 Sex: Unknown Functional Status Question Answer Note LastModified by Organization Details LastModified Time How many times per week do you consume alcohol? Less than 1 time per week [email or web address] Inform ation not available 04/05/2025 Do you use any illicit or recreational drugs? No [email or web address] Information not available 04/05/2025 Do you or have you ever used any other forms of tobacco or nicotine? No [email or web address] Information not available 04/05/2025 What is your level of alcohol consumption? Occasional [email or web address] Information not available 04/05/2025 What type of noise exposure are you exposed to? noExposureToExcessiveNoise [email or web address] Infor mation not available 04/05/2025 Mental Status None recorded. Family History Nothing Reported. Medical History Condition Response Hearing Loss Y Anxiety Y Gynecological HistoryNo gynecological history recorded. Obstetrics History GPAL:G 0 P 0 0 0 0 Past Encounters Encounter ID Performer Location Encounter Start Date Encounter Closed Date Diagnosis/Indication Diagnosis SNOMED-CT Code Diagnosis ICD10 Code Diagnosis IMO Codes Diagnosis Note [id number] SALLY HERNANDES PA-C [facility] [address] [place] [address] 04/05/2025 14:06:47 04/05/2025 14:53:11 Conductive hearing loss 32927620 H90.11 Audiologic al evaluation results: Right ear: Mild sloping to a moderate conductive hearing loss with excellent word recognitio n. Left ear: Normal hearing with excellent word recognitio n. Tympanomet ry: Right Ear:Type B Left Ear:Type A Acquired s tenosis of external ear canal secondary to infection [id number] 680432 H61.321 Health Concerns Section Related Observation LastModified by Organization Detai ls LastModified Time None Recorded Concern Status LastModified by Organization Details LastModified Time None Recorded Advance Directives Directive None Recorded Payers Insurance Date Sequence Insurance Name Policy Number Policy Gonzales Covered Member ID Gonzales Member ID Guarantor Name 04/05/2025 1 [facility] [id number] 23 April Truong [id number] April Truong Notes Date Note Type Note Provider Name and Address Organization Details Recorded Time 04/05/2025 text/html ROS as noted in the HPI 29-year-old female presents for reevaluation. 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 She was left with conductive hearing loss. CT scan previously showed no middle ear pathology. Has had surgical evaluation with Dr. Schmitt and surgery was not recommended. She has a hearing aid for the right side though she admits she is not consistent with using it. She had a left sided ear infection with TM rupture recently which resolved with antibiotic treatment. Hearing has normalized. She does occasionally note some wetness in her ear. SALLY HERNANDES PA-C [address] [place] [address], [phone], [facility] - [facility] 04/05/2025 14:56:27 OBGyn Episode No OBEpisode recorded.
== END 2025-06-30 10:19 | disposition home or self-care (01) ==
LOC: HO.HWSM 09:26
PROVIDERS: Visit Provider Advanced Practice Midwife
DX: Z01.419 Encounter for gynecological examination (general) (routine) without abnormal findings (principal); Z87.42 Personal history of other diseases of the female genital tract; Z11.3 Encounter for screening for infections with a predominantly sexual mode of transmission; Z30.09 Encounter for other general counseling and advice on contraception
CPT/HCPCS: 99213